=== PATIENT | female | born 1960 | race Caucasian/White ===

== ENCOUNTER 2017-12-04 23:52 | Emergency (ER) | payer BC, OTHER ==
[2017-12-04 23:53] VITALS: BMI 37.8
[2017-12-05 00:08] VITALS: TEMP 97.7; O2SAT 98
[2017-12-05] MEDS ORDERED: Sodium Chloride 0.9% 1,000 ML IV STA (00:35)
--- NOTE | 2017-12-05 00:35 | ED PDOC ---
Arrival/HPI - General Chief Complaint: Abdominal Pain Time Seen by Provider: 12/05/17 00:32 Historian: Patient - History of Present Illness Narrative History of Present Illness (Text): 12/05/17 00:34 Ximena Bustamante is a 57 year old female, whose past medical history includes hypertension, who presents to the Emergency department complaining of intermittent abdominal cramping after eating carrot cake 3 days ago. Patient reports associated nausea, vomiting, and diarrhea. Patient denies any fever, chills, chest pain, shortness of breath, urinary symptoms, back pain, neck pain , headache, dizziness, or any other complaints. Past Medical History - Provider Review Nursing Documentation Reviewed: Yes - Tetanus Immunization Tetanus Immunization: Unknown - Past Medical History Past Medical History: No Previous - Cardiac Hx Hypertension: Yes - Musculoskeletal/Rheumatological Hx Osteoarthritis: Yes - Psychiatric Hx Substance Use: No - Surgical History Hx Section: Yes Family/Social History - Physician Review Nursing Documentation Reviewed: Yes Family/Social History: Unknown Family HX Smoking Status: Light Smoker < 10 Cigarettes Daily Hx Alcohol Use: No Hx Substance Use: No Allergies/Home Meds Allergies/Adverse Reactions: Allergies No Known Allergies Allergy (Verified 06/07/14 02:35) Review of Systems - Physician Review All systems were reviewed & negative as marked: Yes - Review of Systems Constitutional: Normal. absent: Fevers Eyes: Normal ENT: Normal Respiratory: Normal. absent: SOB, Cough Cardiovascular: Normal. absent: Chest Pain Gastrointestinal: Abdominal Pain, Diarrhea, Nausea, Vomiting Genitourinary Female: Normal. absent: Dysuria, Frequency, Hematuria, Urine Output Changes Musculoskeletal: Normal. absent: Back Pain, Neck Pain Skin: Normal. absent: Rash Neurological: Normal. absent: Headache, Dizziness Endocrine: Normal Hemo/Lymphatic: Normal Psychiatric: Normal Physical Exam Vital Signs Reviewed: Yes Vital Signs Temp Pulse Resp BP Pulse Ox 12/05/17 00:07 97.7 F 108 H 20 139/83 98 Temperature: Afebrile Blood Pressure: Normal Pulse: Regular Respiratory Rate: Normal Appearance: Positive for: Well-Appearing, Non-Toxic, Comfortable Pain Distress: None Mental Status: Positive for: Alert and Oriented X 3 - Systems Exam Head: Present: Atraumatic, Normocephalic Pupils: Present: PERRL Extroacular Muscles: Present: EOMI Conjunctiva: Present: Normal Mouth: Present: Moist Mucous Membranes Neck: Present: Normal Range of Motion Respiratory/Chest: Present: Clear to Auscultation, Good Air Exchange. No: Respiratory Distress, Accessory Muscle Use Cardiovascular: Present: Regular Rate and Rhythm, Normal S1, S2. No: Murmurs Abdomen: Present: Normal Bowel Sounds. No: Tenderness, Distention, Peritoneal Signs Back: Present: Normal Inspection Upper Extremity: Present: Normal Inspection. No: Cyanosis, Edema Lower Extremity: Present: Normal Inspection. No: Edema Neurological: Present: GCS=15, CN II-XII Intact, Speech Normal Skin: Present: Warm, Dry, Normal Color. No: Rashes Psychiatric: Present: Alert, Oriented x 3, Normal Insight, Normal Concentration Medical Decision Making ED Course and Treatment: 12/05/17 00:34 Impression: 57 year old female complaining of intermittent abdominal cramping, nausea, vomiting, and diarrhea after eating 3 days prior. Plan: -- US Gallbladder and Pancreas -- Labs, lipase -- IV fluids -- Zofran -- Pepcid --Toradol -- Reassess and disposition Progress Notes: 12/05/17 04:29 Reviewed sono, US Gallbladder and Pancreas shows: The gallbladder has been surgically removed. The common bile duct measures 6-7 mm which is within normal limits given the history of cholecystectomy and the patient's age. The liver measures 20 cm and is increased in echogenicity consistent with fatty infiltration. No right hydronephrosis. The right kidney measures 11 cm in length. The pancreas is suboptimally visualized. Single image of the aorta demonstrates normal caliber. IMPRESSION: No acute findings. 12/05/17 04:35 On re-evaluation, patient feels better and is in no acute distress. I have discussed the results and plan with the patient, who expresses understanding. Patient in agreement with plan to be discharged home. Patient is stable for discharge. Patient was instructed to follow up with physician or return if symptoms worsen or new concerning symptoms arise. - Lab Interpretations Lab Results: 12/05/17 01:10 12/05/17 01:10 Lab Results 12/05/17 01:10: WBC 6.3, RBC 4.82, Hgb 14.2, Hct 41.8, MCV 86.7, MCH 29.5, MCHC 34.0, RDW 13.5, Plt Count 279, MPV 10.2 12/05/17 01:10: Sodium 140, Potassium 3.3 L, Chloride 105, Carbon Dioxide 24, Anion Gap 14, BUN 17, Creatinine 0.7, Est GFR ( Amer) > 60, Est GFR (Non- Af Amer) > 60, Random Glucose 108, Calcium 9.4, Total Bilirubin 0.4, AST 43 H, ALT 66 H, Alkaline Phosphatase 59, Total Protein 7.5, Albumin 4.0, Globulin 3.5 , Albumin/Globulin Ratio 1.2, Lipase 48 I have reviewed the lab results: Yes - RAD Interpretation Radiology Orders: 12/05/17 02:40 GALLBLADDER & PANCREAS [US] Stat Summer Counselor: Radiologist - Medication Orders Current Medication Orders: Discontinued Medications Famotidine (Pepcid) 20 mg IVP STAT STA Stop: 12/05/17 00:36 Last Admin: 12/05/17 01:10 Dose: 20 mg IVP Administration Document 12/05/17 01:10 YP (Rec: 12/05/17 01:10 YP [id number]) Charges for Administration # of IVP Administrations 1 Sodium Chloride (Sodium Chloride 0.9%) 1,000 mls @ 999 mls/hr IV .Q1H1M STA Stop: 12/05/17 01:35 Last Admin: 12/05/17 01:10 Dose: 999 mls/hr eMAR Start Stop Document 12/05/17 01:10 YP (Rec: 12/05/17 01:10 [id number]) Intravenous Solution Start Date 12/05/17 Start Time 00:05 End Date 12/05/17 End time 01:05 Total Infusion Time 60 Ketorolac Tromethamine (Toradol) 30 mg IVP ONCE ONE Stop: 12/05/17 00:36 Last Admin: 12/05/17 03:01 Dose: 30 mg MAR Pain Assessment Document 12/05/17 03:01 YP (Rec: 12/05/17 03:01 YP [id number]) Pain Reassessment Is this a pain reassessment? Yes Sleep Is patient sleeping during reassessment? No Presence of Pain Presence of Pain Yes IVP Administration Document 12/05/17 03:01 YP (Rec: 12/05/17 03:01 YP [id number]) Charges for Administration # of IVP Administrations 1 Ondansetron HCl (Zofran Inj) 4 mg IVP ONCE ONE Stop: 12/05/17 00:36 Last Admin: 12/05/17 03:01 Dose: 4 mg IVP Administration Document 12/05/17 03:01 YP (Rec: 12/05/17 03:01 YP [id number]) Charges for Administration # of IVP Administrations 1 Potassium Chloride (K-Dur 20 Meq Er Tab) 20 meq PO STAT STA Stop: 12/05/17 02:40 Last Admin: 12/05/17 03:01 Dose: 20 meq - Scribe Statement The provider has reviewed the documentation as recorded by the Vinicio Garcia Provider Scribe Attestation: All medical record entries made by the Scribinder were at my direction and personally dictated by me. I have reviewed the chart and agree that the record accurately reflects my personal performance of the history, physical exam, medical decision making, and the department course for this patient. I have also personally directed, reviewed, and agree with the discharge instructions and disposition. Disposition/Present on Arrival - Present on Arrival Any Indicators Present on Arrival: No History of DVT/PE: No History of Uncontrolled Diabetes: No Urinary Catheter: No History of Decub. Ulcer: No History Surgical Site Infection Following: None - Disposition Have Diagnosis and Disposition been Completed?: Yes Diagnosis: Gastritis Disposition: HOME/ ROUTINE Disposition Time: 04:37 Patient Plan: Discharge Patient Problems: Current Active Problems Problem Status Onset Gastritis Acute Condition: GOOD Discharge Instructions (ExitCare): Gastritis (ED) Additional Instructions: Drink small amounts of liquids at a time/advance diet slowly as tolerated/ medication as prescribed/follow up with your doctor this week Prescriptions: Phenobarb/Hyoscy/Atropine/Scop [ Tablet] 16.2 mg PO Q6 PRN #12 tablet PRN Reason: Dyspepsia Ondansetron [Zofran Odt] 4 mg PO Q6 PRN #12 odt PRN Reason: Nausea/Vomiting Referrals: Steve Devries DO [Primary Care Provider] - Follow up with primary Forms: InRadio (Persian)
[2017-12-05 01:35] LABS: HEMOGLOBIN 14.2 g/dL (12.0-16.0); MEAN CELL VOLUME 86.7 fl (80.0-105.0); MEAN CORPUSCULAR HEMOGLOBIN 29.5 pg (25.0-35.0); MEAN PLATELET VOLUME 10.2 fl (7.0-11.0); RBC 4.82 10^6/uL (3.5-6.1); RED CELL DISTRIBUTION WIDTH 13.5 % (11.5-14.5); WHITE BLOOD COUNT 6.3 10^3/ul (4.5-11.0)
[2017-12-05 01:41] LABS: ALB/GLOB RATIO 1.2 (1.1-1.8); ALT/SGPT 66 U/L (7-56); AST/SGOT 43 U/L (14-36); BLOOD UREA NITROGEN 17 mg/dL (7-21); CALCIUM 9.4 mg/dL (8.4-10.5); GFR AFRICAN-AMERICAN > 60; GFR NON-AFRICAN AMERICAN > 60; LIPASE 48 U/L (23-300)
[2017-12-05] MEDS ORDERED: Potassium Chloride 20 mEq ER Tab PO STA (02:39)
--- NOTE | 2017-12-05 04:26 | US ---
EXAM: US Abdomen Limited, Right Upper Quadrant EXAM DATE/TIME: 12/05/2017 2:40 AM CLINICAL HISTORY: 57 years old, female; Pain; Abdominal pain; Generalized; Patient HX: Cholecystectomy TECHNIQUE: Real-time ultrasound of the right upper quadrant with image documentation. COMPARISON: No relevant prior studies available. FINDINGS: The gallbladder has been surgically removed. The common bile duct measures 6-7 mm which is within normal limits given the history of cholecystectomy and the patient's age. The liver measures 20 cm and is increased in echogenicity consistent with fatty infiltration. No right hydronephrosis. The right kidney measures 11 cm in length. The pancreas is suboptimally visualized. Single image of the aorta demonstrates normal caliber. IMPRESSION: No acute findings.
[2017-12-05 05:01] VITALS: BP 105/62; PULSE 63; RESP 18
== END 2017-12-05 05:09 | disposition home or self-care (01) ==
LOC: ED 23:52
DX: K29.70 Gastritis, unspecified, without bleeding (principal)
CPT/HCPCS: 76705; 80053; 83690; 85027; 96361; 96374; 96375; 99284; J1885; J2405; J7040

== ENCOUNTER 2019-01-28 10:33 | Outpatient (CLI) | payer BC | END 2019-01-28 10:34 | disposition home or self-care (01) | LOC: LAB 10:33 ==